=== PATIENT | female | born 1955 | race Caucasian/White ===

== ENCOUNTER → 2016-03-03 | Outpatient (CLI) | payer BC ==
[2016-01-25 11:17] VITALS: BP 117/65
[~2016-03-03] MED LIST: HYDR-2666 PO; IOHEXOL 180 MG/ML 10 ML VIAL. ONE; LEVO88TA4 PO; methylPREDNISolone ACETATE 40 MG/ML VIAL. ONE; methylPREDNISolone ACETATE 80 MG/ML VIAL. ONE
--- NOTE | 2016-03-03 17:32 | PAIN ---
DATE OF SERVICE: 03/03/2016 DIAGNOSES: Lumbar radiculopathy with lumbar spondylosis. HISTORY OF PRESENT ILLNESS: The patient is a 60-year-old female who returns for followup status post lumbar epidural steroid injection x 1. The patient reports about 50% improvement in her low back and left lower extremity pain. The patient reports the pain is significantly reduced. She still has some numbness and tingling in the low left part of the leg and some in the low back, but very minimal compared to what it was. The patient reports she has been increasing her activity, she has also been doing physical therapy actively and has a few more weeks of that to go, but is doing all the exercises and things on her own even with some resistive stretching bands which she feels is quite helpful in reducing her pain and increasing her activity. The patient reports now the pain is a dull aching pain in the low back with some tingling and numbness in the left lateral and posterior calf, but much improved. Rates it a 2 on a scale of 10, it is worse. The patient reports no new motor or sensory deficits, no new bowel or bladder incontinence or other complaints. PHYSICAL EXAMINATION: VITAL SIGNS: Today, the patient's blood pressure is 142/80, pulse 84, respirations 18, temperature 97.4 degrees Fahrenheit, weight is 151 pounds. GENERAL: The patient is awake, alert, oriented, appropriate, very pleasant demeanor. HEENT: Head shows normocephalic and atraumatic. Extraocular movements are intact and symmetrical. Oral cavity, mucous membranes are moist and pink. Dentition is intact. NECK: Shows anterior throat supple without palpable lymphadenopathy noted. Swallow reflex is symmetrical. CHEST: Shows normal on inspection. Breath sounds are clear to auscultation bilaterally. HEART: Shows S1 and S2 clear. ABDOMEN: Soft, nontender, nondistended. No palpable organomegaly is noted. No rebound or guarding demonstrated. BACK: The patient's back shows spine grossly midline. Lumbar paraspinous musculature shows only some very mild tenderness with palpation in the lower lumbar distribution of the paraspinous musculature diffusely without radiation. EXTREMITIES: Lower extremities show deep tendon reflexes at 2+ in the patellar tendons. Motor exam is strong with 5/5 dorsiflexion, extension and equal bilaterally. PLAN: Options were discussed with the patient. Patient's old chart was reviewed as her current medication regimen and updated. Current review of systems updated today as well. We will plan on a second lumbar epidural steroid injection today with fluoroscopic guidance. Risks were again discussed including, but not limited to bleeding, infection, possibility of epidural hematoma and subsequent neurologic compromise, dural puncture, headaches, spinal cord and/or nerve damage, side effects of steroid medication and poor results regarding pain control. The patient understands and wishes to proceed. The patient will return to clinic in approximately 2 weeks for followup. She was counseled as to return appointment, activity level and side effects to be aware of. DIAGNOSIS: Lumbar radiculopathy with lumbar spondylosis. PROCEDURE: Lumbar epidural steroid injection with translaminar approach at the L5-S1 level using C-arm fluoroscopic guidance under sterile prep and drape using local anesthetic. MEDICATIONS INJECTED: Depo-Medrol 120 mg plus 10 mL of preservative-free normal saline and 2 mL of Isovue contrast. CONDITION AT DISCHARGE: Stable. The patient tolerated the procedure well, had no complications. CARLENE MENDEZ MD DR: KELIN/sonia JOB#: [id number] / [id number]
== END ==
LOC: PNCL 08:25
PROVIDERS: ATTEND Anesthesiology
DX: M54.5 Low back pain (principal); M47.26 Other spondylosis with radiculopathy, lumbar region
CPT/HCPCS: 62323; J1030; J1040

== ENCOUNTER → 2016-09-07 | Outpatient (CLI) | payer BC ==
[2016-01-25 11:17] VITALS: BP 117/65
[~2016-09-07] MED LIST changes: -HYDR-2666 PO; +HYDR-2758 PO
--- NOTE | 2016-09-08 04:07 | PAIN ---
DATE OF SERVICE: PROGRESS NOTE FOR PAIN CLINIC DIAGNOSES: Lumbar radiculopathy with lumbar spondylosis. HISTORY OF PRESENT ILLNESS: The patient is a 61-year-old female, who returns for followup, status post lumbar epidural steroid injections x 2, last seen on 03/03/2016. The patient reports about 75% improvement, but the pain is returning now over the past month or two, intermittently in the low back and left lower extremity, radiating with an aching, sharp, and shooting pain that is becoming more constant, radiating anywhere from a 5 to 10 on a scale of 10 to a 10/10. The patient reports that currently, it is a 5 today. The patient reports that it increases with walking and standing. She was making bed a few weeks ago and pulled the mattress up from her left side with her weight on her left leg and had immediate pain in her low back radiating into the left leg. It has gotten somewhat better with time, but it is still significant. It is not getting better any further. The patient reports no new motor or sensory deficits, no new bowel or bladder incontinence or other complaints. The patient reports that it awakens her from sleep. She sleeps about 5 hours at a time, but only intermittently because of the pain, especially when she is lying on her left side. The patient has to change positions and try to get back to sleep, which she is usually able to do for a few more hours. The patient reports no other complaints. PAST MEDICAL HISTORY: Significant again for arthritis and previous cigarette smoking. PREVIOUS SURGERY: Include tonsillectomy, partial hysterectomy and perianal lesion resection. CURRENT MEDICATIONS: Include hydrocodone and levothyroxine. ALLERGIES: THE PATIENT IS ALLERGIC TO IV CONTRAST DYE. PHYSICAL EXAMINATION: VITAL SIGNS: The patient's blood pressure is 138/80, pulse 80, respirations are 20, temperature is 97.7 degrees Fahrenheit, and weight is 154 pounds. GENERAL: The patient is awake, alert, oriented, and appropriate, very pleasant demeanor. HEENT: Shows normocephalic, atraumatic. Extraocular movements are intact and symmetrical. Oral cavity shows mucous membranes moist and pink. Dentition is intact. NECK: Shows anterior throat supple without palpable lymphadenopathy noted. Swallow reflex is symmetrical. Neck shows full rotational motion of cervical spine, both laterally as well as in extension and flexion without difficulty. CHEST: Shows normal on inspection. Breath sounds are clear to auscultation bilaterally. HEART: Shows S1 and S2 clear. ABDOMEN: Soft, obese, nontender, and nondistended. No palpable organomegaly is noted. No rebound or guarding demonstrated. BACK: Shows spine grossly in midline with a normal-appearing thoracic kyphosis and lumbar lordotic curvature. Lumbar paraspinous musculature is symmetrical on inspection. With palpation, shows some moderate tenderness in the low lumbar distribution, but only diffusely without radiation. The patient has good rotational motion of the lumbar spine, both laterally as well as in extension and flexion. No tenderness over the sacrum or sacroiliac regions. EXTREMITIES: Lower extremities show deep tendon reflexes 2+ in the patellar and 1+ in the tendo-calcaneus tendons, are equal. Motor exam is strong with 5/5 dorsiflexion, extension, quadriceps, and hamstring flexion. Peripheral pulses are 1+ in the posterior tibial and dorsalis pedis pulses. No peripheral edema is noted. No clubbing, no cyanosis. Lower extremities are equal in color and appearance. Options were discussed with the patient at this time. The patient's old chart was reviewed and her current medication regimen updated. Current review of systems updated today as noted. We will proceed with a lumbar epidural steroid injection today. She has done very well with these in the past. Risks were again discussed, including, but not limited to bleeding, infection, possibility of epidural hematoma and subsequent neurologic compromise, dural puncture, headaches, spinal cord and/or nerve damage, side effects of steroid medication, and poor results regarding pain control. The patient understands and wishes to proceed. The patient will return to clinic in approximately 2 weeks for followup. She was counseled to return appointment, activity level, and side effects to be aware of. DIAGNOSIS: Lumbar radiculopathy with lumbar spondylosis. PROCEDURE: Lumbar epidural steroid injection in translaminar approach at the L5-S1 level using C-arm fluoroscopic guidance under sterile prep and drape using local anesthetic. MEDICATION INJECTED: Depo-Medrol 120 mg plus 10 mL of preservative-free normal saline and 2 mL of isovue for contrast. CONDITION AT DISCHARGE: Stable. The patient tolerated the procedure well, had no complications. CARLENE MENDEZ MD DR: KELIN/sonia JOB#: [id number] / [id number]
== END | disposition home or self-care (01) ==
LOC: PNCL 13:02
PROVIDERS: ATTEND Anesthesiology
DX: M47.16 Other spondylosis with myelopathy, lumbar region (principal); M19.90 Unspecified osteoarthritis, unspecified site; Z90.710 Acquired absence of both cervix and uterus; Z87.39 Personal history of other diseases of the musculoskeletal system and connective tissue; Z86.39 Personal history of other endocrine, nutritional and metabolic disease; Z91.041 Radiographic dye allergy status; Z87.891 Personal history of nicotine dependence
CPT/HCPCS: 62323; J1030; J1040